=== PATIENT | female | born 1990 | race Caucasian/White ===

== ENCOUNTER 2024-08-30 13:28 | Emergency (ER) | payer SELFPAY ==
[2024-08-30] MEDS ORDERED: Fluorescein Opthalmic Strip ONE (14:49)
[2024-08-30] MEDS ORDERED: Proparacaine 0.5% Opth 15 ML BOT ONE (14:50)
== END 2024-08-30 15:35 | disposition home or self-care (01) ==
LOC: ERS 13:28
DX: H10.9 Unspecified conjunctivitis (principal); F43.10 Post-traumatic stress disorder, unspecified
CPT/HCPCS: 99282

== ENCOUNTER 2024-09-30 13:41 | Emergency (ER) | payer SELFPAY ==
[2024-09-30] MEDS ORDERED: Ibuprofen 800 MG TAB ONE (14:43)
== END 2024-09-30 14:58 | disposition home or self-care (01) ==
LOC: ERS 13:41
DX: S82.61XA Displaced fracture of lateral malleolus of right fibula, initial encounter for closed fracture (principal); X50.1XXA Overexertion from prolonged static or awkward postures, initial encounter
CPT/HCPCS: 99283